=== PATIENT | female | born 1965 | race Caucasian/White ===

== ENCOUNTER → 2017-10-23 | Outpatient (CLI) | payer MEDICAID ==
[~2017-10-23] MED LIST: ALBU1.25 NEB; DIPH1TAB PO; ENAL10TA PO; FAMO40TA4 PO; HUM100VI SQ; HYDR25TA6 PO; IBUP200C5 PO; LOPE2CAP PO; NYST60PO TP; OMEP-110 PO; ONDA4TAB10 PO; PROC25SU25 PR; SIMV40TA3 PO; TRAM50TA2 PO
== END | disposition home or self-care (01) ==
LOC: WOUND 12:43
PROVIDERS: ATTEND Internal Medicine
DX: T81.31XA Disruption of external operation (surgical) wound, not elsewhere classified, initial encounter (principal); E10.69 Type 1 diabetes mellitus with other specified complication; L57.9 Skin changes due to chronic exposure to nonionizing radiation, unspecified; I10 Essential (primary) hypertension; E66.01 Morbid (severe) obesity due to excess calories; Z68.45 Body mass index [BMI] 70 or greater, adult; Z85.3 Personal history of malignant neoplasm of breast; Y83.8 Other surgical procedures as the cause of abnormal reaction of the patient, or of later complication, without mention of misadventure at the time of the procedure
CPT/HCPCS: 11042; 99205

== ENCOUNTER → 2017-10-30 | Outpatient (CLI) | payer MEDICAID | END | disposition home or self-care (01) | LOC: WOUND 11:20 | PROVIDERS: ATTEND Internal Medicine | DX: T81.31XD Disruption of external operation (surgical) wound, not elsewhere classified, subsequent encounter (principal); E10.69 Type 1 diabetes mellitus with other specified complication; E66.01 Morbid (severe) obesity due to excess calories; I10 Essential (primary) hypertension; L57.9 Skin changes due to chronic exposure to nonionizing radiation, unspecified; Z85.3 Personal history of malignant neoplasm of breast; Z68.45 Body mass index [BMI] 70 or greater, adult; Y83.8 Other surgical procedures as the cause of abnormal reaction of the patient, or of later complication, without mention of misadventure at the time of the procedure | CPT/HCPCS: 97597 ==

== ENCOUNTER → 2017-11-06 | Outpatient (CLI) | payer MEDICAID | END | disposition home or self-care (01) | LOC: WOUND 10:30 | PROVIDERS: ATTEND Internal Medicine | DX: T81.31XD Disruption of external operation (surgical) wound, not elsewhere classified, subsequent encounter (principal); E10.69 Type 1 diabetes mellitus with other specified complication; I10 Essential (primary) hypertension; E66.01 Morbid (severe) obesity due to excess calories; Z68.45 Body mass index [BMI] 70 or greater, adult; Z85.3 Personal history of malignant neoplasm of breast; Y83.8 Other surgical procedures as the cause of abnormal reaction of the patient, or of later complication, without mention of misadventure at the time of the procedure | CPT/HCPCS: 11042 ==

== ENCOUNTER → 2017-11-13 | Outpatient (CLI) | payer MEDICAID | END | disposition home or self-care (01) | LOC: WOUND 10:41 | PROVIDERS: ATTEND Internal Medicine | DX: T81.31XD Disruption of external operation (surgical) wound, not elsewhere classified, subsequent encounter (principal); E10.69 Type 1 diabetes mellitus with other specified complication; I10 Essential (primary) hypertension; E66.01 Morbid (severe) obesity due to excess calories; Z68.45 Body mass index [BMI] 70 or greater, adult; Z85.3 Personal history of malignant neoplasm of breast; Y83.8 Other surgical procedures as the cause of abnormal reaction of the patient, or of later complication, without mention of misadventure at the time of the procedure | CPT/HCPCS: 97597 ==

== ENCOUNTER → 2017-11-20 | Outpatient (CLI) | payer MEDICAID | END | disposition home or self-care (01) | LOC: WOUND 10:58 | PROVIDERS: ATTEND Internal Medicine | DX: T81.31XD Disruption of external operation (surgical) wound, not elsewhere classified, subsequent encounter (principal); E10.69 Type 1 diabetes mellitus with other specified complication; L57.9 Skin changes due to chronic exposure to nonionizing radiation, unspecified; E66.01 Morbid (severe) obesity due to excess calories; E78.5 Hyperlipidemia, unspecified; G47.33 Obstructive sleep apnea (adult) (pediatric); I11.0 Hypertensive heart disease with heart failure; I50.9 Heart failure, unspecified; Z85.3 Personal history of malignant neoplasm of breast; Z68.45 Body mass index [BMI] 70 or greater, adult; Y83.8 Other surgical procedures as the cause of abnormal reaction of the patient, or of later complication, without mention of misadventure at the time of the procedure | CPT/HCPCS: 97597 ==

== ENCOUNTER → 2017-12-04 | Outpatient (CLI) | payer MEDICAID | END | disposition home or self-care (01) | LOC: WOUND 10:45 | PROVIDERS: ATTEND Internal Medicine | DX: T81.31XD Disruption of external operation (surgical) wound, not elsewhere classified, subsequent encounter (principal); E10.69 Type 1 diabetes mellitus with other specified complication; L57.9 Skin changes due to chronic exposure to nonionizing radiation, unspecified; E66.01 Morbid (severe) obesity due to excess calories; E78.5 Hyperlipidemia, unspecified; G47.33 Obstructive sleep apnea (adult) (pediatric); I11.0 Hypertensive heart disease with heart failure; I50.9 Heart failure, unspecified; Z85.3 Personal history of malignant neoplasm of breast; Z68.45 Body mass index [BMI] 70 or greater, adult | CPT/HCPCS: 97597 ==

== ENCOUNTER → 2017-12-11 | Outpatient (CLI) | payer MEDICAID | END | disposition home or self-care (01) | LOC: WOUND 13:30 | PROVIDERS: ATTEND Internal Medicine | DX: T81.31XD Disruption of external operation (surgical) wound, not elsewhere classified, subsequent encounter (principal); E10.69 Type 1 diabetes mellitus with other specified complication; L57.9 Skin changes due to chronic exposure to nonionizing radiation, unspecified; E66.01 Morbid (severe) obesity due to excess calories; E78.5 Hyperlipidemia, unspecified; G47.33 Obstructive sleep apnea (adult) (pediatric); I11.0 Hypertensive heart disease with heart failure; I50.9 Heart failure, unspecified; Z85.3 Personal history of malignant neoplasm of breast; Z68.45 Body mass index [BMI] 70 or greater, adult; Y83.8 Other surgical procedures as the cause of abnormal reaction of the patient, or of later complication, without mention of misadventure at the time of the procedure | CPT/HCPCS: 97597 ==

== ENCOUNTER → 2018-01-01 | Outpatient (CLI) | payer MEDICAID | END | disposition home or self-care (01) | LOC: WOUND 10:55 | PROVIDERS: ATTEND Internal Medicine | DX: T81.31XD Disruption of external operation (surgical) wound, not elsewhere classified, subsequent encounter (principal); L57.9 Skin changes due to chronic exposure to nonionizing radiation, unspecified; E10.69 Type 1 diabetes mellitus with other specified complication; E78.5 Hyperlipidemia, unspecified; I11.0 Hypertensive heart disease with heart failure; I50.9 Heart failure, unspecified; E66.01 Morbid (severe) obesity due to excess calories; G47.33 Obstructive sleep apnea (adult) (pediatric); Z85.3 Personal history of malignant neoplasm of breast; Z68.45 Body mass index [BMI] 70 or greater, adult; Z79.4 Long term (current) use of insulin; Y83.8 Other surgical procedures as the cause of abnormal reaction of the patient, or of later complication, without mention of misadventure at the time of the procedure | CPT/HCPCS: 97597 ==

== ENCOUNTER → 2018-01-15 | Outpatient (CLI) | payer MEDICAID | END | disposition home or self-care (01) | LOC: WOUND 11:00 | PROVIDERS: ATTEND Internal Medicine | DX: T81.31XD Disruption of external operation (surgical) wound, not elsewhere classified, subsequent encounter (principal); L57.9 Skin changes due to chronic exposure to nonionizing radiation, unspecified; E10.69 Type 1 diabetes mellitus with other specified complication; C50.919 Malignant neoplasm of unspecified site of unspecified female breast; E66.01 Morbid (severe) obesity due to excess calories; E78.5 Hyperlipidemia, unspecified; G47.33 Obstructive sleep apnea (adult) (pediatric); I11.0 Hypertensive heart disease with heart failure; I50.9 Heart failure, unspecified; Z85.3 Personal history of malignant neoplasm of breast; Z68.45 Body mass index [BMI] 70 or greater, adult; Z79.4 Long term (current) use of insulin; Y83.8 Other surgical procedures as the cause of abnormal reaction of the patient, or of later complication, without mention of misadventure at the time of the procedure | CPT/HCPCS: 97597 ==

== ENCOUNTER → 2018-03-12 | Outpatient (CLI) | payer MEDICAID | END | disposition home or self-care (01) | LOC: WOUND 11:00 | PROVIDERS: ATTEND Internal Medicine | DX: T81.31XD Disruption of external operation (surgical) wound, not elsewhere classified, subsequent encounter (principal); E10.69 Type 1 diabetes mellitus with other specified complication; E66.01 Morbid (severe) obesity due to excess calories; L57.9 Skin changes due to chronic exposure to nonionizing radiation, unspecified; E78.5 Hyperlipidemia, unspecified; G47.33 Obstructive sleep apnea (adult) (pediatric); I11.0 Hypertensive heart disease with heart failure; I50.9 Heart failure, unspecified; M19.90 Unspecified osteoarthritis, unspecified site; Z85.3 Personal history of malignant neoplasm of breast; Z68.45 Body mass index [BMI] 70 or greater, adult; Z79.4 Long term (current) use of insulin; Y83.8 Other surgical procedures as the cause of abnormal reaction of the patient, or of later complication, without mention of misadventure at the time of the procedure | CPT/HCPCS: 99214 ==

== ENCOUNTER 2021-06-09 15:09 | Inpatient (IN) | payer MEDICAID ==
[~2021-06-09] VITALS: Ht 144.8 cm; Wt 123.0 kg
[~2021-06-09 15:09] MED LIST changes: -ENAL10TA PO; +ENAL10TA9 PO; +IBUP-1623 PO; -IBUP200C5 PO; +SIMV40TA20 PO; -SIMV40TA3 PO
--- NOTE | 2021-06-09 15:20 | NUR ---
BIB EMS FROM HOME FOR C/O SOB X 1 MONTH WORSENED OVER THE LAST FEW DAYS. PT IS ON 5L NC BASELINE SATING 99%. HX COPD. WAS DX W/ PNA ON February AND WAS ADMITTED AT [facility] UNTIL April. VS DIGITAL MEDIA ANALYST HR 82, BP 124/86, 94% 5L NC. PT RESTING ON GURNEY. NADN. MONITORS APPLIED. VSS. WARM BLANKET PROVIDED. CALL LIGHT IN REACH.
[2021-06-09 15:47] LABS: BASOPHILS % (AUTO) 1 % (0-1); EOSINOPHILS % (AUTO) 2 % (1-7); LYMPHOCYTES % (AUTO) 16 % (22-44); MEAN CORPUSCULAR HEMOGLOBIN 23.9 pg (27.0-34.8); MEAN CORPUSCULAR HGB CONC 31.5 g/dL (32.4-35.8); MEAN PLATELET VOLUME 7.9 fL (7.4-10.4); MONOCYTES % (AUTO) 6 % (2-9); NEUTROPHILS % (AUTO) 76 % (42-75); PLATELET COUNT 188 x10^3/uL (130-400); RED BLOOD COUNT 4.44 x10^6/uL (3.82-5.3); RED CELL DISTRIBUTION WIDTH 19.2 % (9.6-15.2)
[2021-06-09 15:55] LABS: ALANINE AMINOTRANSFERASE 34 U/L (12-78); ALBUMIN 2.7 g/dL (3.4-5.0); ANION GAP 3 mmol/L (5-15); CALCIUM 9.4 mg/dL (8.5-10.1); CHLORIDE 102 mmol/L (98-107); CREATININE 1.07 mg/dL (0.55-1.02)
[2021-06-09 16:00] LABS: ALKALINE PHOSPHATASE 100 U/L (45-117); BILIRUBIN,TOTAL 0.5 mg/dL (0.2-1.0); TOTAL PROTEIN 7.2 g/dL (6.4-8.2)
[2021-06-09 16:03] LABS: TROPONIN I 0.257 ng/mL (0.000-0.045)
[2021-06-09] MEDS ORDERED: FUROSEMIDE 40 MG/4 ML IV ONE (16:30)
[2021-06-09] MEDS ORDERED: ASPIRIN 81 MG TABLET CHEW PO ONE (16:30)
--- NOTE | 2021-06-09 16:54 | NUR ---
BREAK RN NOTE: TROPONIN O.257, EDMD NOTIFIED. PIV PLACED, PT TOLERATED WELL. PT ON ALL MONITORS, NSR ON PUNCHBOARD STUFFER WITH NO ECTOPY. NOTES 3/10 CHEST PRESSURE AT THIS TIME, PT ABLE TO SPEAK WITHOUT DIFFICULTY. AWAITING ADMIT ORDERS AND ROOM ASSIGNMENT. PT UPDATED WITH POC. REPORT GIVEN BACK TO PRIMARY RN PHAN.
[2021-06-09] MEDS ORDERED: FUROSEMIDE 40 MG/4 ML ONE (16:57)
[2021-06-09] MEDS ORDERED: ASPIRIN 81 MG TABLET CHEW ONE (16:58)
[2021-06-09] MEDS: CEFTRIAXONE 1,000 MG in DEXTROSE 5% 50 ML IVPB ONE ×2 (17:03→17:17)
--- NOTE | 2021-06-09 17:18 | NUR ---
REPORT GIVEN TO NADER SCHMIDT RN. ALL QUESTIONS ANSWERED. AWAITING PT TRANSPORT.
--- NOTE | 2021-06-09 17:19 | NUR ---
TASK RN: MEDS ADMIN PER DEC. 2 SETS BLOOD CX COLLECTED PRIOR TO IV ABX ADMIN.
--- NOTE | 2021-06-09 17:21 | NUR ---
[facility] DR. SANTOS AT BEDSIDE FOR ADMISSION.
[2021-06-09] MEDS ORDERED: LABETALOL 5MG/ML, 20ML IVPush PRN (18:00)
[2021-06-09] MEDS ORDERED: ALBUTEROL/IPRATROPIUM 2.5MG/0.5MG, 3 ML IPPB PRN (18:00)
[2021-06-09] MEDS ORDERED: NITROGLYCERIN 0.4 MG BOTTLE (25 TABS) SL PRN (18:00)
[2021-06-09] MEDS ORDERED: ENOXAPARIN 40 MG/0.4 ML SQ SCH (18:00)
[2021-06-09 18:45] LABS: FREE T4 (FREE THYROXINE) 1.02 ng/dL (0.76-1.46); TROPONIN I 0.295 ng/mL (0.000-0.045)
[2021-06-09 18:46] VITALS: BP 125/63
[2021-06-09 21:32] VITALS: BP 113/47
[2021-06-09] MEDS: SIMVASTATIN 40 MG TABLET PO SCH (21:48)
[2021-06-09] MEDS: FAMOTIDINE 20 MG TABLET PO SCH (21:48)
[2021-06-09] MEDS: INSULIN REGULAR 100 UNITS/ML, 3ML VIAL SQ-INSULIN SCH (21:49)
[2021-06-09] MEDS: ALBUTEROL HFA 90 MCG/SPRAY INH SCH (21:50)
[2021-06-09 23:52] LABS: TROPONIN I 0.145 ng/mL (0.000-0.045)
[2021-06-10 03:07] VITALS: BP 103/55
[2021-06-10] MEDS: ACETAMINOPHEN 325 MG TABLET PO PRN (03:25)
[2021-06-10] MEDS: ALBUTEROL HFA 90 MCG/SPRAY INH SCH ×5 (05:35→21:56)
[2021-06-10 06:02] LABS: BASOPHILS % (AUTO) 0 % (0-1); EOSINOPHILS % (AUTO) 0 % (1-7); LYMPHOCYTES % (AUTO) 10 % (22-44); MEAN CORPUSCULAR HEMOGLOBIN 23.9 pg (27.0-34.8); MEAN CORPUSCULAR HGB CONC 31.5 g/dL (32.4-35.8); MEAN PLATELET VOLUME 8.2 fL (7.4-10.4); MONOCYTES % (AUTO) 3 % (2-9); NEUTROPHILS % (AUTO) 87 % (42-75); PLATELET COUNT 180 x10^3/uL (130-400); RED BLOOD COUNT 4.27 x10^6/uL (3.82-5.3); RED CELL DISTRIBUTION WIDTH 19.2 % (9.6-15.2)
[2021-06-10 06:12] LABS: ANION GAP 8 mmol/L (5-15); CALCIUM 9.5 mg/dL (8.5-10.1); CHLORIDE 100 mmol/L (98-107); CHOLESTEROL, TOTAL 160 mg/dL (140-239); CREATININE 1.29 mg/dL (0.55-1.02); TRIGLYCERIDES 74 mg/dL (50-200); VLDL CHOLESTEROL 15 mg/dL (0-25)
[2021-06-10 06:13] LABS: CHOL/HDL RATIO 3.1; HDL CHOL % 33 % (28-40); HDL CHOLESTEROL (DIRECT) 52 mg/dL (40-60); LDL CHOLESTEROL,CALCULATED 93 mg/dL (54-169); LDL/HDL RATIO 1.8 (0.5-3.0)
[2021-06-10] MEDS ORDERED: FUROSEMIDE 40 MG/4 ML IV SCH (07:30)
[2021-06-10 08:06] VITALS: BP 111/55
[2021-06-10] MEDS: AZITHROMYCIN 500 MG TABLET PO SCH (08:28)
[2021-06-10] MEDS: FAMOTIDINE 20 MG TABLET PO SCH (08:28)
[2021-06-10] MEDS: HEPARIN 5,000 UNITS/ML, 1ML SQ SCH ×2 (08:28→16:56)
[2021-06-10] MEDS: INSULIN REGULAR 100 UNITS/ML, 3ML VIAL SQ-INSULIN SCH ×4 (08:33→21:56)
[2021-06-10] MEDS ORDERED: NPH,100V SQ (12:29)
[2021-06-10 13:26] VITALS: BP 95/42
[2021-06-10] MEDS ORDERED: INSULIN HUMULIN 70/30, 3ML PEN SQ-INSULIN SCH (16:00)
[2021-06-10] MEDS: FUROSEMIDE 40 MG/4 ML IV SCH (16:56)
[2021-06-10] MEDS: INSULIN HUMULIN 70/30, 3ML PEN SQ-INSULIN SCH (17:58)
[2021-06-10 19:13] VITALS: BP 94/35
[2021-06-10] MEDS: SIMVASTATIN 40 MG TABLET PO SCH (21:55)
[2021-06-10] MEDS: CEFTRIAXONE 500 MG in DEXTROSE 5% 50 ML IV SCH (21:55)
[2021-06-11] MEDS: HEPARIN 5,000 UNITS/ML, 1ML SQ SCH ×3 (00:23→17:44)
[2021-06-11] MEDS: ACETAMINOPHEN 325 MG TABLET PO PRN ×2 (00:23→06:10)
[2021-06-11 00:45] VITALS: BP 120/58
[2021-06-11] MEDS: ALBUTEROL HFA 90 MCG/SPRAY INH SCH ×5 (06:09→21:41)
[2021-06-11 06:33] VITALS: BP 112/49
[2021-06-11] MEDS: FUROSEMIDE 40 MG/4 ML IV SCH ×2 (07:47→17:43)
[2021-06-11] MEDS: INSULIN REGULAR 100 UNITS/ML, 3ML VIAL SQ-INSULIN SCH ×4 (07:48→21:41)
[2021-06-11] MEDS ORDERED: POTASSIUM CHLORIDE 20 MEQ TAB.ER.PRT PO ONE (09:30)
[2021-06-11 09:34] LABS: BASOPHILS % (AUTO) 1 % (0-1); EOSINOPHILS % (AUTO) 3 % (1-7); LYMPHOCYTES % (AUTO) 21 % (22-44); MEAN CORPUSCULAR HEMOGLOBIN 23.8 pg (27.0-34.8); MEAN CORPUSCULAR HGB CONC 31.3 g/dL (32.4-35.8); MONOCYTES % (AUTO) 5 % (2-9); NEUTROPHILS % (AUTO) 70 % (42-75); PLATELET COUNT 199 x10^3/uL (130-400); RED BLOOD COUNT 4.54 x10^6/uL (3.82-5.3); RED CELL DISTRIBUTION WIDTH 19.1 % (9.6-15.2)
[2021-06-11 09:38] LABS: ALANINE AMINOTRANSFERASE 27 U/L (12-78); ALBUMIN 2.9 g/dL (3.4-5.0); ANION GAP 7 mmol/L (5-15); CHLORIDE 98 mmol/L (98-107); CREATININE 1.17 mg/dL (0.55-1.02)
[2021-06-11 09:43] LABS: ALKALINE PHOSPHATASE 78 U/L (45-117); BILIRUBIN,TOTAL 0.7 mg/dL (0.2-1.0); TOTAL PROTEIN 7.2 g/dL (6.4-8.2)
[2021-06-11] MEDS: INSULIN HUMULIN 70/30, 3ML PEN SQ-INSULIN SCH ×2 (10:07→19:00)
[2021-06-11] MEDS: AZITHROMYCIN 500 MG TABLET PO SCH (10:07)
[2021-06-11] MEDS: FAMOTIDINE 20 MG TABLET PO SCH (10:08)
[2021-06-11 12:08] VITALS: BP 118/56
[2021-06-11] MEDS ORDERED: MELATONIN 5 MG TABLET PO PRN (20:00)
[2021-06-11] MEDS: SIMVASTATIN 40 MG TABLET PO SCH (21:39)
[2021-06-11] MEDS: CEFTRIAXONE 500 MG in DEXTROSE 5% 50 ML IV SCH (22:34)
[2021-06-12] MEDS: HEPARIN 5,000 UNITS/ML, 1ML SQ SCH ×3 (00:57→17:36)
[2021-06-12 01:06] VITALS: BP 108/39
[2021-06-12 02:01] VITALS: BP 110/48
[2021-06-12 05:08] LABS: BASOPHILS % (AUTO) 1 % (0-1); EOSINOPHILS % (AUTO) 3 % (1-7); LYMPHOCYTES % (AUTO) 21 % (22-44); MEAN CORPUSCULAR HEMOGLOBIN 23.5 pg (27.0-34.8); MEAN CORPUSCULAR HGB CONC 31.3 g/dL (32.4-35.8); MEAN PLATELET VOLUME 8.6 fL (7.4-10.4); MONOCYTES % (AUTO) 6 % (2-9); NEUTROPHILS % (AUTO) 70 % (42-75); PLATELET COUNT 183 x10^3/uL (130-400); RED BLOOD COUNT 4.56 x10^6/uL (3.82-5.3); RED CELL DISTRIBUTION WIDTH 19.5 % (9.6-15.2)
[2021-06-12 05:30] LABS: ALANINE AMINOTRANSFERASE 24 U/L (12-78); ALBUMIN 2.8 g/dL (3.4-5.0); ANION GAP 7 mmol/L (5-15); CHLORIDE 98 mmol/L (98-107); CREATININE 0.95 mg/dL (0.55-1.02)
[2021-06-12 05:32] LABS: ALKALINE PHOSPHATASE 80 U/L (45-117); BILIRUBIN,TOTAL 0.7 mg/dL (0.2-1.0); TOTAL PROTEIN 7.1 g/dL (6.4-8.2)
[2021-06-12] MEDS: ALBUTEROL HFA 90 MCG/SPRAY INH SCH ×5 (06:17→21:33)
[2021-06-12 08:00] VITALS: BP 144/71
[2021-06-12] MEDS: INSULIN HUMULIN 70/30, 3ML PEN SQ-INSULIN SCH ×2 (08:34→17:26)
[2021-06-12] MEDS: FUROSEMIDE 40 MG/4 ML IV SCH ×2 (08:34→17:36)
[2021-06-12] MEDS: INSULIN REGULAR 100 UNITS/ML, 3ML VIAL SQ-INSULIN SCH ×4 (08:35→21:00)
[2021-06-12] MEDS: AZITHROMYCIN 500 MG TABLET PO SCH (08:36)
[2021-06-12] MEDS: FAMOTIDINE 20 MG TABLET PO SCH (08:36)
[2021-06-12] MEDS: POTASSIUM CHLORIDE 20 MEQ PACKET PO SCH (14:19)
[2021-06-12 20:05] VITALS: BP 124/45
[2021-06-12] MEDS: SIMVASTATIN 40 MG TABLET PO SCH (21:00)
[2021-06-12] MEDS: CEFTRIAXONE 500 MG in DEXTROSE 5% 50 ML IV SCH (21:33)
[2021-06-13 00:44] VITALS: BP 113/63
[2021-06-13] MEDS: HEPARIN 5,000 UNITS/ML, 1ML SQ SCH ×3 (01:01→17:04)
[2021-06-13] MEDS: ALBUTEROL HFA 90 MCG/SPRAY INH SCH ×5 (05:13→23:03)
[2021-06-13] MEDS: IBUPROFEN 200 MG TABLET PO PRN ×2 (05:13→23:02)
[2021-06-13] MEDS: INSULIN REGULAR 100 UNITS/ML, 3ML VIAL SQ-INSULIN SCH ×4 (07:00→23:03)
[2021-06-13 08:03] VITALS: BP 123/59
[2021-06-13] MEDS: FAMOTIDINE 20 MG TABLET PO SCH (08:06)
[2021-06-13] MEDS: POTASSIUM CHLORIDE 20 MEQ PACKET PO SCH (08:06)
[2021-06-13] MEDS: FUROSEMIDE 40 MG TABLET PO SCH (08:06)
[2021-06-13] MEDS: AZITHROMYCIN 500 MG TABLET PO SCH (08:09)
[2021-06-13 08:49] LABS: BASOPHILS % (AUTO) 1 % (0-1); EOSINOPHILS % (AUTO) 3 % (1-7); LYMPHOCYTES % (AUTO) 21 % (22-44); MEAN CORPUSCULAR HEMOGLOBIN 23.5 pg (27.0-34.8); MEAN CORPUSCULAR HGB CONC 31.3 g/dL (32.4-35.8); MEAN PLATELET VOLUME 8.1 fL (7.4-10.4); MONOCYTES % (AUTO) 5 % (2-9); NEUTROPHILS % (AUTO) 71 % (42-75); PLATELET COUNT 183 x10^3/uL (130-400); RED BLOOD COUNT 4.73 x10^6/uL (3.82-5.3); RED CELL DISTRIBUTION WIDTH 19.2 % (9.6-15.2)
[2021-06-13 08:57] LABS: ANION GAP 7 mmol/L (5-15); CALCIUM 9.1 mg/dL (8.5-10.1); CHLORIDE 99 mmol/L (98-107); CREATININE 0.94 mg/dL (0.55-1.02)
[2021-06-13] MEDS: INSULIN HUMULIN 70/30, 3ML PEN SQ-INSULIN SCH ×2 (10:29→17:04)
[2021-06-13 14:43] VITALS: BP 105/65
[2021-06-13 19:50] VITALS: BP 95/63
[2021-06-13] MEDS: CEFTRIAXONE 500 MG in DEXTROSE 5% 50 ML IV SCH (21:07)
[2021-06-13] MEDS: SIMVASTATIN 40 MG TABLET PO SCH (21:07)
[2021-06-14 00:48] VITALS: BP 106/63
[2021-06-14] MEDS: HEPARIN 5,000 UNITS/ML, 1ML SQ SCH ×3 (01:16→17:24)
[2021-06-14] MEDS: ALBUTEROL HFA 90 MCG/SPRAY INH SCH ×5 (06:03→21:07)
[2021-06-14 06:23] LABS: BASOPHILS % (AUTO) 1 % (0-1); EOSINOPHILS % (AUTO) 4 % (1-7); LYMPHOCYTES % (AUTO) 21 % (22-44); MEAN CORPUSCULAR HEMOGLOBIN 23.2 pg (27.0-34.8); MEAN CORPUSCULAR HGB CONC 30.6 g/dL (32.4-35.8); MEAN PLATELET VOLUME 8.2 fL (7.4-10.4); MONOCYTES % (AUTO) 5 % (2-9); NEUTROPHILS % (AUTO) 70 % (42-75); PLATELET COUNT 183 x10^3/uL (130-400); RED BLOOD COUNT 4.56 x10^6/uL (3.82-5.3); RED CELL DISTRIBUTION WIDTH 19.3 % (9.6-15.2)
[2021-06-14 06:33] LABS: ALBUMIN 2.6 g/dL (3.4-5.0); CALCIUM 9.4 mg/dL (8.5-10.1)
[2021-06-14 06:37] LABS: ALANINE AMINOTRANSFERASE 20 U/L (12-78); ALKALINE PHOSPHATASE 74 U/L (45-117); BILIRUBIN,TOTAL 0.5 mg/dL (0.2-1.0); CREATININE 0.88 mg/dL (0.55-1.02); TOTAL PROTEIN 6.8 g/dL (6.4-8.2)
[2021-06-14 06:45] LABS: ANION GAP 5 mmol/L (5-15); CHLORIDE 101 mmol/L (98-107)
[2021-06-14 07:30] VITALS: BP 104/66
[2021-06-14] MEDS: INSULIN HUMULIN 70/30, 3ML PEN SQ-INSULIN SCH ×2 (08:40→17:24)
[2021-06-14] MEDS: POTASSIUM CHLORIDE 20 MEQ PACKET PO SCH (08:41)
[2021-06-14] MEDS: FAMOTIDINE 20 MG TABLET PO SCH (08:41)
[2021-06-14] MEDS: FUROSEMIDE 40 MG TABLET PO SCH (08:41)
[2021-06-14] MEDS: AZITHROMYCIN 500 MG TABLET PO SCH (08:41)
[2021-06-14] MEDS: INSULIN REGULAR 100 UNITS/ML, 3ML VIAL SQ-INSULIN SCH ×4 (08:41→21:06)
[2021-06-14 12:26] VITALS: BP 127/60
[2021-06-14 18:57] VITALS: BP 122/60
[2021-06-14] MEDS: SIMVASTATIN 40 MG TABLET PO SCH (21:05)
[2021-06-14] MEDS: CEFTRIAXONE 500 MG in DEXTROSE 5% 50 ML IV SCH (21:13)
[2021-06-15] MEDS: HEPARIN 5,000 UNITS/ML, 1ML SQ SCH ×3 (01:04→17:37)
[2021-06-15 02:16] VITALS: BP 121/61
[2021-06-15] MEDS: ALBUTEROL HFA 90 MCG/SPRAY INH SCH ×5 (05:41→22:00)
[2021-06-15 07:20] VITALS: BP 108/65
[2021-06-15] MEDS: INSULIN REGULAR 100 UNITS/ML, 3ML VIAL SQ-INSULIN SCH ×4 (08:26→21:19)
[2021-06-15] MEDS: POTASSIUM CHLORIDE 20 MEQ PACKET PO SCH (08:33)
[2021-06-15] MEDS: INSULIN HUMULIN 70/30, 3ML PEN SQ-INSULIN SCH ×2 (08:35→17:38)
[2021-06-15] MEDS: FAMOTIDINE 20 MG TABLET PO SCH ×2 (08:35→21:10)
[2021-06-15] MEDS: FUROSEMIDE 40 MG TABLET PO SCH (08:36)
[2021-06-15 15:05] VITALS: BP 100/44
[2021-06-15 20:00] VITALS: BP 118/44
[2021-06-15] MEDS: CEFTRIAXONE 500 MG in DEXTROSE 5% 50 ML IV SCH (20:58)
[2021-06-15] MEDS: SIMVASTATIN 40 MG TABLET PO SCH (20:58)
[2021-06-16] MEDS: HEPARIN 5,000 UNITS/ML, 1ML SQ SCH ×2 (01:09→09:00)
[2021-06-16 01:50] VITALS: BP 102/42
[2021-06-16] MEDS: IBUPROFEN 200 MG TABLET PO PRN (01:57)
[2021-06-16] MEDS: ALBUTEROL HFA 90 MCG/SPRAY INH SCH ×2 (05:10→09:03)
[2021-06-16 06:36] VITALS: BP 112/53
[2021-06-16] MEDS: INSULIN REGULAR 100 UNITS/ML, 3ML VIAL SQ-INSULIN SCH ×2 (07:00→12:15)
[2021-06-16] MEDS ORDERED: FAMO40TA4 PO (08:46)
[2021-06-16] MEDS ORDERED: POTA20TA37 PO (08:46)
[2021-06-16] MEDS ORDERED: FURO40TA6 PO (08:46)
[2021-06-16] MEDS: POTASSIUM CHLORIDE 20 MEQ PACKET PO SCH (09:02)
[2021-06-16] MEDS: FAMOTIDINE 20 MG TABLET PO SCH (09:02)
[2021-06-16] MEDS: FUROSEMIDE 40 MG TABLET PO SCH (09:02)
[2021-06-16] MEDS: INSULIN HUMULIN 70/30, 3ML PEN SQ-INSULIN SCH (09:53)
== END 2021-06-16 13:44 | disposition home health service (06) | DRG 137 ==
LOC: ED 16:32 → EDIP 16:33 → ED 17:08 → ICU 18:20 → 4WST 06-12 22:25
PROVIDERS: ADMIT Family Medicine; ATTEND Family Medicine
DX: J15.6 Pneumonia due to other Gram-negative bacteria (principal); J96.21 Acute and chronic respiratory failure with hypoxia; I21.A1 Myocardial infarction type 2; E10.9 Type 1 diabetes mellitus without complications; I50.9 Heart failure, unspecified; E66.2 Morbid (severe) obesity with alveolar hypoventilation; J44.0 Chronic obstructive pulmonary disease with (acute) lower respiratory infection; E78.5 Hyperlipidemia, unspecified; Z20.822 Contact with and (suspected) exposure to COVID-19; Z99.81 Dependence on supplemental oxygen; Z79.4 Long term (current) use of insulin; Z68.43 Body mass index [BMI] 50.0-59.9, adult; Z87.01 Personal history of pneumonia (recurrent); Z91.19 Patient's noncompliance with other medical treatment and regimen; Z88.8 Allergy status to other drugs, medicaments and biological substances; Z91.040 Latex allergy status
CPT/HCPCS: 36415; 84145; 99285; C8929; 71045; 80048; 80053; 80061; 80069; 82962; 83036; 83605; 83880; 84439; 84443; 84484; 85025; 87040; 93005; G0378; J0696; J1644; J1650; J1815; J1940; Q9957; U0005; J7512; U0003